=== PATIENT | female | born 1990 | race Caucasian/White ===

== ENCOUNTER 2022-08-04 15:13 | Emergency (ER) | payer MEDICAID, SELFPAY ==
[2022-08-04 15:21] VITALS: BP 143/90; PULSE 106; RESP 16; TEMP 36.1; O2SAT 98; BMI 42.9
--- NOTE | 2022-08-04 15:28 | ED_ITS ---
HPI - Burn/Smoke Inhalation General: Chief complaint: Burn/Smoke Inhalation Stated complaint: Left Leg burn Time Seen by Provider: 08/04/22 15:22 History of Present Illness: Patient is a 31-year-old female comes to the ED with left leg burn. Patient says burn occurred approximately 2 weeks ago. She states that she was burning some trash at her house and a piece of trash fell out and touched her left lower leg causing burn. Burn initially had a blister, but it popped on its own. She states that she has been cleaning it daily with soap and water and then covering it with a bandage. Over the last 2 days she has been putting petroleum jelly on it as well. Her main concern today is that the burn area on left leg is gotten more purple in color. Denies any fevers or red streaking up the leg. Denies any purulent discharge. Patient says her burn has minimal pain currently and is not bothering her all that much. Patient is unsure of last tetanus. Associated symptoms: Deny chest pain, fever(s), headache(s), nausea, neck pain or vomiting Review of Systems Const: Denies: fever(s), chills or fatigue Eyes: Denies: change in vision or eye discomfort ENMT: Denies: throat pain, odynophagia, nasal discharge or nasal congestion Card: Denies: chest pain, palpitations, edema, swelling of feet/ankles, dyspnea on exertion or orthopnea Resp: Denies: dyspnea, productive cough or non-productive cough GI: Denies: abdominal pain, nausea, vomiting, diarrhea, constipation or hematochezia : Denies: flank pain, dysuria or hematuria Musc: Denies: neck pain, back pain or extremity swelling Skin/Breast: Reports: new lesions (Burn on left lower leg); Denies: rash Neuro: Denies: headache(s), numbness in extremities or weakness in extremities PFS ED PFSH: Medical History (Updated 08/04/22 @ 15:44 by MAUREEN Andres) No pertinent family history Surgical History (Updated 08/04/22 @ 15:39 by MAUREEN Andres) No pertinent past surgical history Physical Exam Const: COMMON NORMALS: patient oriented x3 and alert GENERAL APPEARANCE: cooperative HENMT: COMMON NORMALS: normocephalic HEAD & SCALP: normocephalic MOUTH: Normal oral and palatal mucosa present THROAT: posterior oropharynx normal and uvula midline Neck/C-Spine: COMMON NORMALS: supple GENERAL: Yes normal visual inspection Resp: COMMON NORMALS: normal respiratory effort, No retractions, No use of accessory muscles and clear to auscultation bilaterally AUSCULTATION: clear to auscultation bilaterally Cardio: COMMON NORMALS: regular rate, regular rhythm, S1 normal heart sound present, S2 normal heart sound present, No gallops present (Cardio), No clicks present (Cardio), No murmurs present (Cardio) and Peripheral pulses 2+ throughout RATE: regular rate RHYTHM: regular rhythm HEART SOUNDS: S1 normal heart sound present and S2 normal heart sound present PERIPHERAL PULSES: Peripheral pulses 2+ throughout GI: COMMON NORMALS: Normal to inspection, nondistended, normoactive bowel sounds present, Soft to palpation, non-tender and no masses PALPATION: Yes Soft to palpation : COMMON NORMALS: Yes no CVA tenderness BLADDER/KIDNEY EXAM: Yes no CVA tenderness Back/Pelvis: COMMON NORMALS: no CVA tenderness Extremity: COMMON NORMALS: normal to inspection Neuro: COMMON NORMALS: patient oriented x3 SENSORIUM/ORIENTATION: Yes alert GAIT: Yes Normal gait present Skin: NARRATIVE SKIN EXAM: Left lower leg?patient has well demarcated burn wound on anterior aspect of mahan. No blistering noted. Wound is currently healing and does have a purplish color to it. No puslike or purulent drainage seen. No surrounding erythema or red streaking up the leg. GENERAL SKIN EXAM: dry skin Course Vital Signs: Vital signs: Vital Signs Temperature 96.9 F L 08/04/22 15:21 Pulse Rate 106 H 08/04/22 15:21 Respiratory Rate 16 08/04/22 15:21 Blood Pressure 143/90 08/04/22 15:21 Pulse Oximetry 98 08/04/22 15:21 Oxygen Delivery Me thod Room Air 08/04/22 15:21 MDM - Burn/Smoke Inhalation Medical Decision Making Patient is a 31-year-old female comes to the ED with left leg burn. Patient says burn occurred approximately 2 weeks ago. She states that she was burning some trash at her house and a piece of trash fell out and touched her left lower leg causing burn. Burn initially had a blister, but it popped on its own. She states that she has been cleaning it daily with soap and water and then covering it with a bandage. Over the last 2 days she has been putting petroleum jelly on it as well. Her main concern today is that the burn area on left leg is gotten more purple in color. Denies any fevers or red streaking up the leg. Denies any purulent discharge. Patient says her burn has minimal pain currently and is not bothering her all that much. Patient is unsure of last tetanus. Vitals are stable. Left lower leg?patient has well demarcated burn wound on anterior aspect of mahan. No blistering noted. Wound is currently healing and does have a purplish color to it. No puslike or purulent drainage seen. No surrounding erythema or red streaking up the leg. Patient was given updated tetanus here in the ED and nurse irrigated and cleaned burn and applied triple antibiotic ointment on it and cover with bandage. She was stable for discharge home and diagnosed with a second-degree burn of left leg. She was instructed on how to care for burn and told to clean daily with soap and water and apply triple antibiotic ointment on the wound to help with healing. Sent home with a prescription for an antibiotic as well. Return to ED precautions given. Follow-up with PCP within the next week for reevaluation. Patient understood and agreed with plan. Discharge Plan Discharge Patient Disposition: Home Clinical Impression: Burn of leg, left, second degree Qualifiers: Encounter type: initial encounter Qualified Code(s): T24.202A - Burn of second degree of unspecified site of left lower limb, except ankle and foot, initial encounter Condition: Stable Prescriptions: New cephalexin 500 mg capsule 500 mg PO Q6H 7 Days Qty: 28 0RF Discharge Orders: Discharge ED (Routine); Ordered 08/04/22 Ordered By: Chuck Whitley Discharge Diet: Regular Discharge Activity: Increase activity as tolerated Patient Instructions: Thermal Saba Activity Restrictions/Additional Instructions: Follow-up with medical provider as directed in the next 3 to 5 days for reevaluation. Make sure to clean the burn daily with soap and water and apply triple antibiotic ointment on the burn and cover with bandage. Take medications as prescribed. Return to the ER or your medical provider if condition worsens. Please read and understand discharge instructions. Thank you for choosing [facility] for your healthcare needs today. Jessica garcia realize this is an emergency room and that we are providing you with a medical screening exam and this may not be complete and all inclusive of all the testing and or work up that you may need to determine your ailment or severity of your illness. It is very important that you follow up as instructed or that you return to the Emergency Department should you have concerns or if your condition changes or worsens in any way. Coding Level of Care Code ED Assistant Director Of [employer] for Lily Hunt
[2022-08-04] MEDS: neomycin-poly-bacitracin oint 28 gm 1 APPLIC TOPICAL (15:46)
[2022-08-04] MEDS: tetanus-dipt-pertussis 0.5 mL SDV IM (15:49)
[2022-08-04 16:03] VITALS: BP 144/82; PULSE 82; O2SAT 99
--- NOTE | 2022-08-09 12:48 | DCPLANNER ---
life enrichment manager was triggered to call patient due to no primary care physician - patient sees Sherly Vidal at [facility].
== END 2022-08-04 16:05 | disposition home or self-care (01) ==
PROVIDERS: Emergency Provider Physician Assistant; PCP Nurse Practitioner Family
DX: T24.202A Burn of second degree of unspecified site of left lower limb, except ankle and foot, initial encounter (principal); X08.8XXA Exposure to other specified smoke, fire and flames, initial encounter; Z23 Encounter for immunization
CPT/HCPCS: 90471; 90715; 99283

== ENCOUNTER → 2022-08-08 13:02 | Outpatient (BNVA) | payer MEDICAID, SELFPAY | PROVIDERS: PCP Nurse Practitioner Family; Visit Provider Nurse Practitioner Family | DX: Z76.89 Persons encountering health services in other specified circumstances (principal); F32.4 Major depressive disorder, single episode, in partial remission; Z83.3 Family history of diabetes mellitus; T24.202A Burn of second degree of unspecified site of left lower limb, except ankle and foot, initial encounter; X58.XXXA Exposure to other specified factors, initial encounter | CPT/HCPCS: 80053; 80061; 83036; 84443 ==

== ENCOUNTER → 2023-08-15 13:03 | Outpatient (BNVA) | payer MEDICAID, SELFPAY | PROVIDERS: PCP Nurse Practitioner Family; Visit Provider Nurse Practitioner Family | DX: F32.4 Major depressive disorder, single episode, in partial remission (principal); R10.9 Unspecified abdominal pain; F33.41 Major depressive disorder, recurrent, in partial remission; J30.2 Other seasonal allergic rhinitis; R10.30 Lower abdominal pain, unspecified | CPT/HCPCS: 80053; 80061; 84443; 85025 ==

== ENCOUNTER 2023-08-21 06:59 | Outpatient (CLI) | payer MEDICAID, SELFPAY ==
--- NOTE | 2023-08-21 07:15 | US_ITS ---
WS: [id number] Complete ABDOMINAL ULTRASOUND HISTORY: ABD pain COMPARISON: None available. Liver: 15.8 cm in length. Normal size liver and echogenicity. No bile duct dilatation or mass. Portal Vein: Normal hepatopetal flow with monophasic waveform. Gallbladder: Normally distended gallbladder with no stones or wall thickening. CBD: 0.5 cm Pancreas: Normal size and echogenicity. Right kidney: 9.4 cm x 5.3 x 4.6 cm. Cortex:1.6 cm. Normal size and echogenicity. No hydronephrosis or mass. Left kidney: 10.0 cm x 4.7 cm x 5.8 cm. Cortex: 1.6 cm. Normal size and echogenicity. No hydronephrosis or mass. Spleen: 12.9 cm. Normal size and echogenicity. Aorta and IVC: Mild atherosclerosis aorta. US/US abdomen complete* [id number] Impression: 1. Negative gallbladder. 2. Mild atherosclerosis abdominal aorta. 3. No renal obstruction.
== END 2023-08-21 07:00 | disposition home or self-care (01) ==
LOC: RAD 06:59
PROVIDERS: PCP Nurse Practitioner Family; Visit Provider Nurse Practitioner Family
DX: R10.9 Unspecified abdominal pain (principal); I70.0 Atherosclerosis of aorta
CPT/HCPCS: 76700